=== PATIENT | female | born 1935 | race Caucasian/White ===

== ENCOUNTER 2016-09-30 19:14 | Inpatient (IN) | payer MEDICARE, MEDICAID ==
[~2016-09-30] VITALS: Ht 157.5 cm; Wt 54.0 kg
[2016-09-30 19:27] VITALS: BP 164/66; PULSE 69; RESP 18; O2SAT 97
[2016-09-30 19:41] VITALS: TEMP 98
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
[2016-09-30] MEDS ORDERED: ZYRT10CA PO (19:56)
[2016-09-30] MEDS ORDERED: LORA1TAB12 PO (19:56)
[2016-09-30] MEDS ORDERED: SERO25TA PO (19:56)
[2016-09-30] MEDS ORDERED: TRAZ50TA12 PO (19:56)
[2016-09-30] MEDS ORDERED: CITA20TA4 PO (19:56)
--- NOTE | 2016-09-30 20:17 | RADRPT ---
EXAM DATE/TIME: 09/30/2016 19:43 [facility] COMPARISON: No previous studies available for comparison. INDICATIONS : Altered mental status. RADIATION DOSE: 56.35 CTDIvol (mGy) MEDICAL HISTORY : Dementia. Ulcers. SURGICAL HISTORY : Appendectomy. Cholecystectomy. ENCOUNTER: Initial ACUITY: 1 day PAIN SCALE: 0/10 LOCATION: cranial TECHNIQUE: Multiple contiguous axial images were obtained of the head. Using automated exposure control and adj ustment of the mA and/or kV according to patient size, radiation dose was kept as low as reasonably a chievable to obtain optimal diagnostic quality images. FINDINGS: There is marked central and cortical atrophy with dilatation of ventricular and sulcal spaces. There is no parenchymal hemorrhage, acute infarction or mass lesion identified. There are no extra-a xial fluid collections appreciated. The posterior fossa is unremarkable with midline fourth ventricl e. The portion of the orbits and paranasal sinuses visualized are unremarkable. CONCLUSION: Atrophy with periventricular matter changes, negative for acute process. Soto Uribe MD FACR on September 30, 2016 at 20:15 Board Certified Radiologist. This report was verified electronically.
[2016-09-30 20:18] LABS: AUTOMATED NEUTROPHIL # 6.1 TH/MM3 (1.8-7.7); BASOPHIL # 0.1 TH/MM3 (0-0.2); BASOPHIL % 0.7 % (0.0-2.0); EOSINOPHIL # 0.3 TH/MM3 (0-0.4); EOSINOPHIL % 3.6 % (0.0-4.0); HEMATOCRIT 39.4 % (35.0-46.0); HEMO FLAGS DIFF FINAL; LYMPH % 21.1 % (9.0-44.0); MEAN CELL VOLUME 82.2 FL (80.0-100.0); MEAN CORPUSCULAR HEMOGLOBIN 28.6 PG (27.0-34.0); MEAN CORPUSCULAR HGB CONC 34.8 % (32.0-36.0); MONO % 10.2 % (0.0-8.0); NEUT % 64.4 % (16.0-70.0); PLATELET COUNT 315 TH/MM3 (150-450); RED BLOOD COUNT 4.79 MIL/MM3 (4.00-5.30); RED CELL DISTRIBUTION WIDTH 14.1 % (11.6-17.2); WHITE BLOOD COUNT 9.5 TH/MM3 (4.0-11.0)
[2016-09-30] MEDS ORDERED: DONE10TA7 PO (20:39)
[2016-09-30 20:48] LABS: ALKALINE PHOSPHATASE 118 U/L (45-117); ALT (GPT) 20 U/L (10-53); ANION GAP 7 MEQ/L (5-15); AST (GOT) 23 U/L (15-37); BICARBONATE 31.2 MEQ/L (21.0-32.0); BLOOD UREA NITROGEN 19 MG/DL (7-18); CHLORIDE 101 MEQ/L (98-107); GLOMERULAR FILTRATION RATE 62 ML/MIN (>89); SODIUM (NA) 139 MEQ/L (136-145); TOTAL BILIRUBIN ADULT 0.3 MG/DL (0.2-1.0)
[2016-09-30 20:49] LABS: BLOOD, URINE NEG (NEG); COMMENT (UR) CULT NOT INDICATED; CULTURE IF INDICATED CULT NOT INDICATED; GLUCOSE,URINE NEG (NEG); KETONE, URINE NEG (NEG); MUCUS URINE FEW /lpf (OCC); NITRITE,URINE NEG (NEG); PH, URINE 6.5 (5.0-8.5); SQUAMOUS EPITHELIAL CELL URINE <1 /hpf (0-5); URINE COLOR YELLOW (YELLW/STRAW)
[2016-09-30 20:56] LABS: POTASSIUM 4.5 MEQ/L (3.5-5.1)
--- NOTE | 2016-09-30 21:08 | PD ---
Physical Exam Date Seen by Provider: Sep 30, 2016 Time Seen by Provider: 21:07 Narrative 81-year-old female came to the emergency room as a Dobbs act. She has history of psych disorder. She was seen by the nurse practitioner for medical clearance. I am supervising her. She has left for the night. Blood test and CAT scan of the head was pending. They came back and are within normal limit. I'll medically cleared her. Awaiting for the psych screening. Data Data Last Documented VS Vital Signs Date Time Temp Pulse Resp B/P Pulse Ox O2 Delivery O2 Flow Rate FiO2 10/01/16 15:25 96.1 83 18 143/62 96 Room Air Orders Complete Blood Count With Diff (09/30/16 19:34) Comprehensive Metabolic Panel (09/30/16 19:34) Urinalysis - C+S If Indicated (09/30/16 19:34) Cath For Specimen (09/30/16 19:34) Psych Screen (09/30/16 19:34) Ct Brain W/O Iv Contrast(Rout) (09/30/16 ) Diet Regular Basic (10/01/16 Breakfast) Diet Regular Basic (10/01/16 Lunch) Lorazepam Inj (Ativan Inj) (10/01/16 11:00) Haloperidol (Haldol) (10/01/16 16:15) Admit Order (Ed Use Only) (10/01/16 ) Admit To Inpatient Psych (10/01/16 ) Code Status (10/01/16 16:29) Vital Signs (Adult) PO.Q12H.E (10/01/16 16:29) Activity Oob Ad Soraida (10/01/16 16:29) Level Of Observation (Psych) (10/01/16 16:29) Aims-Abnormal Invol Move Scale ONCE (10/01/16 16:29) Acetaminophen (Tylenol) (10/01/16 16:30) Magnesium Hydroxide Liq (Milk Of Magnesi (10/01/16 16:30) Al-Mag Hy-Si 40-40-4 Mg/Ml Liq (Mag-Al P (10/01/16 16:30) Basic Metabolic Panel (Bmp) (10/02/16 06:00) Lipid Profile (10/02/16 06:00) Hemoglobin (Hgb) A1c (10/02/16 06:00) Labs Laboratory Tests Test 09/30/16 09/30/16 20:05 20:30 White Blood Count 9.5 TH/MM3 Red Blood Count 4.79 MIL/MM3 Hemoglobin 13.7 GM/DL Hematocrit 39.4 % Mean Corpuscular Volume 82.2 FL Mean Corpuscular Hemoglobin 28.6 PG Mean Corpuscular Hemoglobin 34.8 % Concent Red Cell Distribution Width 14.1 % Platelet Count 315 TH/MM3 Mean Platelet Volume 8.9 FL Neutrophils (%) (Auto) 64.4 % Lymphocytes (%) (Auto) 21.1 % Monocytes (%) (Auto) 10.2 % Eosinophils (%) (Auto) 3.6 % Basophils (%) (Auto) 0.7 % Neutrophils # (Auto) 6.1 TH/MM3 Lymphocytes # (Auto) 2.0 TH/MM3 Monocytes # (Auto) 1.0 TH/MM3 Eosinophils # (Auto) 0.3 TH/MM3 Basophils # (Auto) 0.1 TH/MM3 CBC Comment DIFF FINAL Differential Comment Sodium Level 139 MEQ/L Potassium Level 4.5 MEQ/L Chloride Level 101 MEQ/L Carbon Dioxide Level 31.2 MEQ/L Anion Gap 7 MEQ/L Blood Urea Nitrogen 19 MG/DL Creatinine 0.88 MG/DL Estimat Glomerular Filtration 62 ML/MIN Rate Random Glucose 91 MG/DL Calcium Level 9.4 MG/DL Total Bilirubin 0.3 MG/DL Aspartate Amino Transf 23 U/L (AST/SGOT) Alanine Aminotransferase 20 U/L (ALT/SGPT) Alkaline Phosphatase 118 U/L Total Protein 7.0 GM/DL Albumin 3.5 GM/DL Urine Color YELLOW Urine Turbidity CLEAR Urine pH 6.5 Urine Specific [place] 1.020 Urine Protein NEG mg/dL Urine Glucose (UA) NEG mg/dL Urine Ketones NEG mg/dL Urine Occult Blood NEG Urine Nitrite NEG Urine Bilirubin NEG Urine Urobilinogen LESS THAN 2.0 MG/DL Urine Leukocyte Esterase NEG Urine RBC 2 /hpf Urine WBC 1 /hpf Urine Squamous Epithelial <1 /hpf Cells Urine Mucus FEW /lpf Microscopic Urinalysis Comment CULT NOT INDICATED MDM Supervised Visit with RACHEL: Jesús Denise MD Sep 30, 2016 21:08
[2016-10-01 00:16] VITALS: BP 128/61; PULSE 70; RESP 16; O2SAT 96
[2016-10-01 02:00] VITALS: RESP 18
[2016-10-01 06:00] VITALS: BP 124/61; PULSE 80; RESP 18; O2SAT 100
[2016-10-01 10:00] VITALS: BP 135/76; PULSE 78; RESP 18; O2SAT 97
[2016-10-01] MEDS ORDERED: LORazepam 2 MG/ML VIAL IM ONE (11:00)
[2016-10-01 15:25] VITALS: BP 143/62; PULSE 83; RESP 18; TEMP 96.1; O2SAT 96
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
[2016-10-01] MEDS ORDERED: HALOPERIDOL 2 MG TAB PO ONE (16:15)
[2016-10-01] MEDS ORDERED: ALUMINUM/MAGNESIUM/SIMETH 30 ML CUP PO PRN (16:30)
[2016-10-01] MEDS ORDERED: MAGNESIUM HYDROXIDE SUSP 30 ML CUP PO PRN (16:30)
[2016-10-01] MEDS ORDERED: LORazepam 1 MG TAB PO PRN (23:00)
[2016-10-01] MEDS ORDERED: LORazepam 0.5 MG TAB PO PRN (23:00)
[2016-10-01] MEDS ORDERED: LORazepam 2 MG/ML VIAL IM PRN ×2 (23:00)
[2016-10-02 05:29] VITALS: BP 155/65; PULSE 80; RESP 20; TEMP 98.3
[2016-10-02] MEDS ORDERED: diphenhydrAMINE HCL 50 MG/ML VIAL IM PRN (09:00)
[2016-10-02] MEDS: CETIRIZINE HCL 10 MG TAB PO SCH (09:00)
[2016-10-02] MEDS: CITALOPRAM HYDROBROMIDE 20 MG TAB PO SCH (09:00)
[2016-10-02] MEDS: QUEtiapine FUMARATE 25 MG TAB PO SCH ×2 (09:00→21:31)
--- NOTE | 2016-10-02 09:08 | HHI.HP ---
Provisional Diagnosis Admission Date Oct 01, 2016 at 16:31 [place] I. 1. Dementia of the Alzheimer's type with behavioral disturbance [place] II. Deferred [place] V. GAF is 30 presently Certification of Person's Competence To Provide Express and Informed Consent I have personally examined Rosa Marin , a person being served at [facility] on, Oct 02, 2016 08:54. Express and informed consent means consent voluntarily given in writing, by a competent person, after sufficient explanation and disclosure of the subject matter involved to enable the person to make a knowing and willful decision without any element of force, fraud, deceit, duress, or other form of constraint or coercion. This person is 18 years of age or older, is not now known to be incompetent to consent to treatment with a guardian advocate, and does not have a health care surrogate or proxy currently making medical treatment decisions. I have found this person to be one of the following: [] Competent to provide express and informed consent, as defined above, for voluntary admission to this facility and is competent to provide express and informed consent for treatment. He/she has the consistent capacity to make well reasoned, willful, and knowing decisions concerning his or her medical or mental health treatment. The person fully and consistently understands the purpose of the admission for examination/placement and is fully capable of personally exercising all rights assured under [place] [x] Incompetent to provide express and informed consent to voluntary admission, and this is incompetent to provide express and informed consent to treatment. The person must be transferred to involuntary status and a petition for a guardian advocate filed with the Circuit Court. [] Refusing to provide express and informed consent to voluntary admission but is competent to provide express and informed consent for treatment. The person must be discharged or transferred to involuntary status. Form shall be completed within 24 hours of a person's arrival at the receiving facility and filed in the clinical record of each person: 1. Admitted on a voluntary basis 2. Permitted to provide express and informed consent to his/her own treatment 3. Allowed to transfer from involuntary to voluntary status 4. Prior to permitting a person to consent to his or her own treatment after having been previously found incompetent to consent to treatment. History of Present Illness Capacity: Lacks Capacity HPI Ms. Marin is an 81-year-old female with a history of dementia who presents in transfer from her [facility] under a Dobbs act from [place] [employer] alleging that the patient has been agitated acting out and striking and kicking other patients. Minimal documentation accompanies the patient from her facility, and I have reviewed this. Patient was seen by the psychiatric nurse practitioner recommended admission to the inpatient psychiatric unit. Reviewing the electronic medical record, I see no prior psychiatric contact within our system. Patient seen and examined. Chart reviewed. Case discussed with nursing staff on the inpatient psychiatric unit. On my examination today, patient presents as confused, see full mental status testing below. She denies any audiovisual hallucinations. I can elicit no delusional beliefs although she has little watchful. She denies any suicidal ideation but when I inquire about homicidal ideation she says "oh, I like to kill some people. They're a pain in the ass." She declines to say whom she would kill. No reported urge to hurt anyone on the inpatient psychiatric unit. Denies issues with low mood or elevated mood. She has no recollection of the circumstances of her presentation here. Psychiatric interview is limited because of patient's degree of cognitive impairment. Patient is unable to provide any meaningful past psychiatric or family history on account of her cognitive impairment. Chemical dependency history: Patient denies any abuse of drugs or alcohol. Social history: Patient reports that she is college educated and worked at [employer] in the past. She is unsure about her marital status and says that she has a "couple of kids." I endeavored first reach out to patient's daughter Dinorah at the number listed in the EMR, but this number was not in service. I subsequently called the patient's son, Brennen, who lives in [facility] and is listed as the first personal injury litigation paralegal on the documentation from patient's facility. He reports that the patient has no prior psychiatric history before her diagnosis with dementia. Years ago. She had previously been residing with Brennen's brother here in [place]. She did not previously have issues with agitation before she was placed in the facility, but Brennen has been getting periodic reports that she has been struggling with agitation since she has been there. Brennen is willing to act as healthcare surrogate for the patient. I reviewed patient's medication list from facility with son. I discuss treatment plan on inpatient unit including but not limited to holding benzodiazepines out of concern that these may be disinhibiting the patient and titrating Seroquel for control of agitation. I have discussed the risks and benefits of patient's medications with son in detail, highlighting the black box warning for increased risk of in the demented elderly with atypical antipsychotics. He is agreeable to the treatment plan as outlined below. I have discussed the risks and benefits of hospitalization, particularly extended hospitalization as may be required if the patient needs new placement, with patient's son including the risk for medical complications on the inpatient unit, and he agrees that inpatient hospitalization is the most reasonable course of action at this time. He is unsure about patient's wishes regarding CODE STATUS but will discuss the matter with the family and get back to me. Review of Systems ROS Limitations: Poor Historian Except as stated in HPI: all other systems reviewed are Neg Past Psych History Psychological trauma history Unable to obtain on account of cognitive impairment Violence risk - others (6 mos) Concern for elevated risk. Patient has allegedly been having issues with agitation and does endorse some violent ideation as noted above. Violence risk - self (6 mos) Indeterminate but suspect lower risk. Patient denies suicidal ideation. Substance Abuse History Drugs/Alcohol past 12 months Patient denies Past Family Social History Coded Allergies: Ultram (Verified Allergy, Severe, 09/30/16) Lipitor (Verified Allergy, Mild, 09/30/16) Past Medical History See electronic medical record. Patient's son does not believe that she has any chronic medical issues to speak of and her only medical medication from the facility list is some cetirizine. Reported Medications Donepezil 10 Mg Tab10 Mg PO HS #30 TAB Ref 0 09/30/16 Citalopram 20 Mg Tab20 Mg PO DAILY #30 TAB Ref 0 09/30/16 Cetirizine (Zyrtec Allergy)10 Mg Cap10 Mg PO DAILY Ref 0 09/30/16 Trazodone 50 Mg Tab50 Mg PO HS #30 TAB Ref 0 09/30/16 Lorazepam 1 Mg Tab1 Mg PO Q8H PRN (ANXIETY) Ref 0 09/30/16 Quetiapine (Seroquel)25 Mg Tab25 Mg PO DAILY #30 TAB Ref 0 09/30/16 Current Medications Medications (Trade) Dose Ordered Sig/Chris Route Start Time Stop Time Status Last Admin (Tylenol) 650 mg Q4H PRN PO 10/01/16 16:30 (Milk Of Magnesia Liq) 30 ml DAILY PRN PO 10/01/16 16:30 (Mag-Al Plus Susp Liq) 30 ml Q6H PRN PO 10/01/16 16:30 (Ativan) 0.5 mg Q1H PRN PO 10/01/16 23:00 (Ativan Inj) 0.5 mg Q1H PRN IM 10/01/16 23:00 (Ativan) 1 mg Q1H PRN PO 10/01/16 23:00 (Ativan Inj) 1 mg Q1H PRN IM 10/01/16 23:00 Family History See above Social History See above Patient's Strengths (min. 2) In a monitored setting. Supportive son. Physical Exam Physical examination completed by ED provider. On my examination today, patient appears to be fairly well-nourished and well-developed in no acute physical distress. No hand tremor, no dystonia, no dyskinesia, no other motoric abnormalities noted. Laboratories and vital signs reviewed: Vital Signs Vital Signs Date Time Temp Pulse Resp B/P Pulse Ox O2 Delivery O2 Flow Rate FiO2 10/02/16 05:29 98.3 80 20 155/65 10/01/16 15:25 96 Room Air Lab Results Item Value Date Time White Blood Count 9.5 TH/MM3 09/30/162004 Hemoglobin 13.7 GM/DL 09/30/162004 Platelet Count 315 TH/MM3 09/30/162004 Sodium Level 139 MEQ/L 09/30/162004 Potassium Level 4.5 MEQ/L 09/30/162004 Chloride Level 101 MEQ/L 09/30/162004 Blood Urea Nitrogen 19 MG/DL H 09/30/162004 Creatinine 0.88 MG/DL 09/30/162004 Random Glucose 91 MG/DL 09/30/162004 Aspartate Amino Transf (AST/SGOT) 23 U/L 09/30/162004 Alanine Aminotransferase (ALT/SGPT) 20 U/L 09/30/162004 Alkaline Phosphatase 118 U/L H 09/30/162004 Urinalysis is bland Last Impressions Head CT 09/30/16 0000 Signed Impressions: Service Date/Time: Friday, September 30, 2016 19:43 - CONCLUSION: Atrophy with periventricular matter changes, negative for acute process. Soto Uribe MD FACR Mental Status Examination Patient is in hospital [facility]. She is somewhat disheveled but maintaining basic hygiene. She is awake and alert and oriented to person only. Her registration is 3 out of 3 but her recall is 0 out of 3 at 3 minutes. She is unable to spell the word world forward or backward. She is able to name only one of 2 items. She is unable to repeat a phrase. She cannot tell me who the president is. Motor exam as above. Speech is within normal limits for rate, tone and volume. Language and fund of knowledge seem reduced for age. Mood is fair and affect is fairly full and reactive. Thought process generally linear with no loosening of associations. No shari delusional material. Denies audiovisual hallucinations. Denies suicidal ideation. Endorses violent ideation as noted above. Insight and judgment are presently poor. Assessment & Plan Problem List: (1) Alzheimer's dementia with behavioral disturbance ICD Code: G30.8 Assessment & Plan This is an 81-year-old female with psychiatric history as detailed above who presents under a Dobbs act. On my examination today, the patient presents with severe cognitive impairment. She does endorse some violent ideation. Collateral from son suggests that agitation has been a problem since the patient entered into the facility. I will admit the patient to the inpatient psychiatric unit for observation and stabilization. Admit inpatient. Involuntary status. I've completed first opinion. Consult for second opinion. Request healthcare surrogate and guardian advocate. Titrate Seroquel to 25 mg twice daily to manage agitation. Continue Celexa 20 mg daily. Continue Aricept 10 mg at bedtime. Hold benzodiazepines and instead use Haldol as needed for agitation. Benadryl as needed for EPS. Melatonin as needed for sleep. PT consult with falls precautions. Vitals every shift. Counselor to see. Disposition planning. Estimated length of stay: 7-10 days. Discharge Planning Pending psychiatric stabilization. Hopefully the patient will be able to return to her original placement. Request HC Surrog/Guard Advoc?: Yes Problem Qualifiers (1) Alzheimer's dementia with behavioral disturbance: Qualified Code: G30.8 - Alzheimer's disease of other onset with behavioral disturbance Kevin Quarles MD Oct 02, 2016 09:08
[2016-10-02 09:27] LABS: ANION GAP 7 MEQ/L (5-15); BICARBONATE 27.2 MEQ/L (21.0-32.0); BLOOD UREA NITROGEN 14 MG/DL (7-18); CHLORIDE 104 MEQ/L (98-107); GLOMERULAR FILTRATION RATE 78 ML/MIN (>89); HDL CHOLESTEROL 59.9 MG/DL (40.0-60.0); LDL CHOLESTEROL 133 MG/DL (0-99); SODIUM (NA) 138 MEQ/L (136-145)
--- NOTE | 2016-10-02 13:19 | PD.CONS ---
Provisional Diagnosis Admission Date Oct 01, 2016 at 16:31 [place] I. 1. 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 Deferred [place] V. GAF is 30 presently History of Present Illness Service Psychiatry Consult Requested By Attending MNichole. Reason for Consult Second opinion Dobbs act Primary Care Physician Jerzy Alonso MD HPI Ms. Marin is an 81-year-old female with a history of dementia who presents in transfer from her [facility] nursing facility under a Dobbs act from [place] [employer] alleging that the patient has been agitated acting out and striking and kicking other patients. Minimal documentation accompanies the patient from her facility, and I have reviewed this. Patient was seen by the psychiatric nurse practitioner recommended admission to the inpatient psychiatric unit. Reviewing the electronic medical record, I see no prior psychiatric contact within our system. Patient seen and examined. Chart reviewed. Case discussed with nursing staff on the inpatient psychiatric unit. On my examination today, patient presents as confused, see full mental status testing below. She denies any audiovisual hallucinations. I can elicit no delusional beliefs although she has little watchful. She denies any suicidal ideation but when I inquire about homicidal ideation she says "oh, I like to kill some people. They're a pain in the ass." She declines to say whom she would kill. No reported urge to hurt anyone on the inpatient psychiatric unit. Denies issues with low mood or elevated mood. She has no recollection of the circumstances of her presentation here. Psychiatric interview is limited because of patient's degree of cognitive impairment. Patient is unable to provide any meaningful past psychiatric or family history on account of her cognitive impairment. Chemical dependency history: Patient denies any abuse of drugs or alcohol. Social history: Patient reports that she is college educated and worked at [employer] in the past. She is unsure about her marital status and says that she has a "couple of kids." I endeavored first reach out to patient's daughter Dinorah at the number listed in the EMR, but this number was not in service. I subsequently called the patient's son, Brennen, who lives in [facility] and is listed as the first salesperson china and glassware on the documentation from patient's facility. He reports that the patient has no prior psychiatric history before her diagnosis with dementia. Years ago. She had previously been residing with Brennen's brother here in [place]. She did not previously have issues with agitation before she was placed in the facility, but Brennen has been getting periodic reports that she has been struggling with agitation since she has been there. Brennen is willing to act as healthcare surrogate for the patient. I reviewed patient's medication list from facility with son. I discuss treatment plan on inpatient unit including but not limited to holding benzodiazepines out of concern that these may be disinhibiting the patient and titrating Seroquel for control of agitation. I have discussed the risks and benefits of patient's medications with son in detail, highlighting the black box warning for increased risk of in the demented elderly with atypical antipsychotics. He is agreeable to the treatment plan as outlined below. I have discussed the risks and benefits of hospitalization, particularly extended hospitalization as may be required if the patient needs new placement, with patient's son including the risk for medical complications on the inpatient unit, and he agrees that inpatient hospitalization is the most reasonable course of action at this time. He is unsure about patient's wishes regarding CODE STATUS but will discuss the matter with the family and get back to me. 10/02/16 Above note dictated by Dr. quarles reviewed and agreed with. Patient is an 81 -year-old female admitted to Dr. quarles service under the Dobbs act. Dr. Quarles has signed first opinion petition supporting Dobbs act. Patient seen by me in dayroom with floor staff, patient alert diffusely disorganized to place time and situation somewhat irritable. I agree, patient does meet criteria for involuntary psychiatric hospitalization under the Dobbs act. Thus I'll cosign second opinion petition supporting Dobbs act Past Family Social History Coded Allergies: Ultram (Verified Allergy, Severe, 09/30/16) Lipitor (Verified Allergy, Mild, 09/30/16) Reported Medications Donepezil 10 Mg Tab10 Mg PO HS #30 TAB Ref 0 09/30/16 Citalopram 20 Mg Tab20 Mg PO DAILY #30 TAB Ref 0 09/30/16 Cetirizine (Zyrtec Allergy)10 Mg Cap10 Mg PO DAILY Ref 0 09/30/16 Trazodone 50 Mg Tab50 Mg PO HS #30 TAB Ref 0 09/30/16 Lorazepam 1 Mg Tab1 Mg PO Q8H PRN (ANXIETY) Ref 0 09/30/16 Quetiapine (Seroquel)25 Mg Tab25 Mg PO DAILY #30 TAB Ref 0 09/30/16 Current Medications Medications (Trade) Dose Ordered Sig/Chris Route Start Time Stop Time Status Last Admin (Tylenol) 650 mg Q4H PRN PO 10/01/16 16:30 (Milk Of Magnesia Liq) 30 ml DAILY PRN PO 10/01/16 16:30 (Mag-Al Plus Susp Liq) 30 ml Q6H PRN PO 10/01/16 16:30 (ZyrTEC) 10 mg DAILY PO 10/02/16 09:00 (CeleXA) 20 mg DAILY PO 10/02/16 09:00 (Aricept) 10 mg HS PO 10/02/16 21:00 (SEROquel) 25 mg BID PO 10/02/16 09:00 (Haldol Inj) 2 mg Q8H PRN IM 10/02/16 09:00 (Melatonin) 5 mg HS PRN PO 10/02/16 09:00 (Benadryl Inj) 25 mg Q6H PRN IM 10/02/16 09:00 (Benadryl) 25 mg Q6H PRN PO 10/02/16 09:00 Patient's Strengths (min. 2) In a monitored setting. Supportive son. Physical Exam Vital Signs Vital Signs Date Time Temp Pulse Resp B/P Pulse Ox O2 Delivery O2 Flow Rate FiO2 10/02/16 05:29 98.3 80 20 155/65 10/01/16 15:25 96 Room Air Mental Status Examination Alert diffusely confused white female Speech: Hesitant, Other (markedly confused) Orientation: Person (vaguely) Memory: Impaired (describe) Thought Process: Loose Association Thought Content: Other (markedly confused) Language [employer] Poor Hallucination Type: None (none noted) Attention and Concentration: Other (poor) Suicidal Ideation: No (denies) Previous Suicide Attempts: No Homicidal Ideation: No Previous Homicide Attempts: No Insight: Poor Judgment: Poor Affect: Other (slight increase range intensity) Mood: Irritable Motor Activity: Normal gait Assessment & Plan Problem List: (1) Alzheimer's dementia with behavioral disturbance ICD Code: G30.8 Assessment & Plan Estimated LOS: days Request HC Surrog/Guard Advoc?: Yes Problem Qualifiers (1) Alzheimer's dementia with behavioral disturbance: Qualified Code: G30.8 - Alzheimer's disease of other onset with behavioral disturbance Alexander Arreola MD Oct 02, 2016 13:19
[2016-10-02] MEDS: HALOPERIDOL LACTATE 5 MG/ML AMP IM PRN (14:06)
[2016-10-02 16:45] LABS: HEMOGLOBIN A1a 1.1 %; HEMOGLOBIN A1b 1.7 %; HEMOGLOBIN Ao 85.3 %; HEMOGLOBIN LA1C 1.9 %; HEMOGLOBIN P3 3.8 %
[2016-10-02 18:00] VITALS: BP 171/71; PULSE 86; RESP 16; TEMP 98.1; O2SAT 97
[2016-10-02] MEDS ORDERED: QUEtiapine FUMARATE 25 MG TAB PO SCH (21:00)
[2016-10-02] MEDS: DONEPEZIL HCL 5 MG TAB PO SCH (21:31)
[2016-10-03] MEDS: CETIRIZINE HCL 10 MG TAB PO SCH (09:15)
[2016-10-03] MEDS: CITALOPRAM HYDROBROMIDE 20 MG TAB PO SCH (09:15)
[2016-10-03] MEDS: QUEtiapine FUMARATE 25 MG TAB PO SCH ×3 (09:15→21:48)
--- NOTE | 2016-10-03 10:29 | HHI.PYPN ---
Subjective Remarks Patient seen and examined. Chart reviewed. Patient required Haldol PRN yesterday afternoon secondary to agitation/aggression. Case discussed with nursing staff reports that the patient remained somewhat suspicious and is isolating in her room but has had no further aggressive behavior. On my examination today, patient presents with a somewhat downcast mien, although she reports no depression. She denies any SI/HI/AVH. Denies any side effects from medications. Review of Systems ROS Limitations: Poor Historian Except as stated in HPI: all other systems reviewed are Neg (limited secondary to cognitive impairment) Objective Alert: Yes [place]: Person Mood: Calm (presently calm) Affect: Restricted (dysphoric) Memory Intact: Comment (Remains impaired) Hallucinations: Other (No AVH) Delusions: No Delusion Type: Other (No delusions) Suicidal: Ideation (Denies SI) Homicidal: Ideation (Denies HI) Insight/Judgment Poor Remarks No motor abnormalities noted. Grooming and hygiene fair although I do note that the patient is requiring 1-2 person assist with some hygiene tasks such as wei care. Labs Labs reviewed. Vitals/IOs Vital Signs Date Time Temp Pulse Resp B/P Pulse Ox O2 Delivery O2 Flow Rate FiO2 10/02/16 18:00 98.1 86 16 171/71 97 10/01/16 15:25 Room Air Intake and Output 10/02/16 10/02/16 10/03/16 08:00 16:00 00:00 Intake Total 120 ml 240 ml 240 ml Balance 120 ml 240 ml 240 ml Assessment & Plan Problem List: (1) Alzheimer's dementia with behavioral disturbance ICD Code: G30.8 Assessment & Plan Titrate Seroquel to 25 mg 3 times daily in light of agitation yesterday. Continue other psychotropics as ordered. Trend blood pressures. Patient may require a scheduled antihypertensive. In the meanwhile I will add clonidine as needed for marked hypertension. Continue other medications and care as ordered. Justification for Cont. Inpt. Impairment in safety. Some degree of impairment in self-care. Impairment in reality construction as a consequence of her dementia. Impairment in social functioning with aggression. Medication changes in process. Risk for decompensation in a less restrictive environment. Discharge Planning Unclear at present if patient is welcome back at her existing facility. I have left a message for the counselor to check on this. Request HC Surrog/Guard Advoc?: Yes Problem Qualifiers (1) Alzheimer's dementia with behavioral disturbance: Qualified Code: G30.8 - Alzheimer's disease of other onset with behavioral disturbance Kevin Quarles MD Oct 03, 2016 10:29
[2016-10-03] MEDS ORDERED: cloNIDine HCL 0.1 MG TAB PO PRN (12:00)
[2016-10-03 19:22] VITALS: BP 140/65; PULSE 88; RESP 17; TEMP 98.4
[2016-10-03] MEDS: DONEPEZIL HCL 5 MG TAB PO SCH (21:47)
[2016-10-03] MEDS: diphenhydrAMINE HCL 25 MG CAP PO PRN (21:48)
[2016-10-04 06:15] VITALS: BP 147/67; PULSE 73; RESP 16; TEMP 97.8; O2SAT 96
[2016-10-04] MEDS: QUEtiapine FUMARATE 25 MG TAB PO SCH ×3 (09:54→21:00)
[2016-10-04] MEDS: CITALOPRAM HYDROBROMIDE 20 MG TAB PO SCH (09:54)
[2016-10-04] MEDS: CETIRIZINE HCL 10 MG TAB PO SCH (09:54)
--- NOTE | 2016-10-04 13:46 | HHI.PYPN ---
Subjective Remarks Patient seen and examined. Chart reviewed. Case discussed with nursing staff. On my examination today, patient is calm and cooperative with examination. She is confused and oriented to person only. Affect is a little bit anxious but not terribly so. She reports that she is sleeping and eating well, although charting indicates that her oral intake is somewhat spotty. No evident side effects from medications. Review of Systems ROS Limitations: Poor Historian Except as stated in HPI: all other systems reviewed are Neg (limited ROS because of cognitive impairment) Objective Alert: Yes [place]: Person Mood: Calm Affect: Other (somewhat anxious) Memory Intact: Comment (impaired) Hallucinations: Other (No AVH) Delusions: No Delusion Type: Other (no delusional material) Suicidal: Ideation (no SI) Homicidal: Ideation (no HI) Insight/Judgment Poor Remarks No motor abnormalities noted. Thought process disorganized consistent with dementia diagnosis. Speech somewhat rambling. Labs Labs reviewed. Vitals/IOs Vital Signs Date Time Temp Pulse Resp B/P Pulse Ox O2 Delivery O2 Flow Rate FiO2 10/04/16 06:15 97.8 73 16 147/67 96 10/01/16 15:25 Room Air Intake and Output 10/03/16 10/03/16 10/04/16 08:00 16:00 00:00 Intake Total 0 ml Balance 0 ml Assessment & Plan Problem List: (1) Alzheimer's dementia with behavioral disturbance ICD Code: G30.8 Assessment & Plan Replace Celexa with Remeron in hopes of promoting appetite. Continue Seroquel as ordered. Continue Aricept as ordered. Dietitian consult. Continue to monitor on the inpatient unit. Continue other medications and care as ordered. Justification for Cont. Inpt. Impairment reality construction as a consequence of her dementia. Medication changes and process. Complicating conditions, namely poor oral intake. High risk for decompensation in a less restrictive environment. Discharge Planning Placement Request HC Surrog/Guard Advoc?: Yes Problem Qualifiers (1) Alzheimer's dementia with behavioral disturbance: Qualified Code: G30.8 - Alzheimer's disease of other onset with behavioral disturbance Kevin Quarles MD Oct 04, 2016 13:46
[2016-10-04 18:00] VITALS: BP 133/62; PULSE 86; RESP 16; TEMP 96.4; O2SAT 96
[2016-10-04] MEDS: DONEPEZIL HCL 5 MG TAB PO SCH (21:00)
[2016-10-04] MEDS: MIRTAZAPINE 15 MG TAB PO SCH (21:00)
[2016-10-05] MEDS: CETIRIZINE HCL 10 MG TAB PO SCH (09:23)
[2016-10-05] MEDS: QUEtiapine FUMARATE 25 MG TAB PO SCH ×3 (09:23→21:36)
--- NOTE | 2016-10-05 18:48 | HHI.PYPN ---
Subjective Remarks Pt seen and discussed with staff. She was irritable and uncooperative with care this morning but later complied. She has been isolative to her room for most of the day. No SI/HI Objective Alert: Yes [place]: Person Mood: Calm Affect: Restricted Memory Intact: Comment (impaired) Hallucinations: Other (No AVH) Delusions: No Delusion Type: Other (no delusional material) Suicidal: Ideation (no SI) Homicidal: Ideation (no HI) Insight/Judgment poor Vitals/IOs Vital Signs Date Time Temp Pulse Resp B/P Pulse Ox O2 Delivery O2 Flow Rate FiO2 10/04/16 18:00 96.4 86 16 133/62 96 10/01/16 15:25 Room Air Intake and Output 10/04/16 10/04/16 10/05/16 08:00 16:00 00:00 Intake Total 0 ml 960 ml 720 ml Balance 0 ml 960 ml 720 ml Assessment & Plan Problem List: (1) Alzheimer's dementia with behavioral disturbance ICD Code: G30.8 Assessment & Plan Continue current tx plan. Estimated LOS: days Justification for Cont. Inpt. risk of decompensation Request HC Surrog/Guard Advoc?: Yes Problem Qualifiers (1) Alzheimer's dementia with behavioral disturbance: Qualified Code: G30.8 - Alzheimer's disease of other onset with behavioral disturbance Carey Harris MD Oct 05, 2016 18:48
[2016-10-05 20:00] VITALS: BP 154/66; PULSE 80; TEMP 96.9; O2SAT 94
[2016-10-05] MEDS: MIRTAZAPINE 15 MG TAB PO SCH (21:36)
[2016-10-05] MEDS: DONEPEZIL HCL 5 MG TAB PO SCH (21:36)
[2016-10-06 05:30] VITALS: BP 112/49; PULSE 61; RESP 16; TEMP 96.9
[2016-10-06 10:00] VITALS: BP 150/68; PULSE 68
[2016-10-06] MEDS: QUEtiapine FUMARATE 25 MG TAB PO SCH ×3 (10:06→20:59)
[2016-10-06] MEDS: CETIRIZINE HCL 10 MG TAB PO SCH (10:06)
[2016-10-06 18:00] VITALS: BP 130/60; PULSE 70; RESP 16; TEMP 97.3; O2SAT 97
--- NOTE | 2016-10-06 20:15 | HHI.PYPN ---
Subjective Remarks Pt seen and discussed with staff. She has been confused but more compliant with care today. No medication side effects. No aggression/agitation. Objective Alert: Yes [place]: Person Mood: Calm Affect: Restricted Memory Intact: Comment (impaired) Hallucinations: Other (No AVH) Delusions: No Delusion Type: Other (no delusional material) Suicidal: Ideation (no SI) Homicidal: Ideation (no HI) Insight/Judgment poor Vitals/IOs Vital Signs Date Time Temp Pulse Resp B/P Pulse Ox O2 Delivery O2 Flow Rate FiO2 10/06/16 18:00 97.3 70 16 130/60 97 Intake and Output 10/05/16 10/05/16 10/06/16 08:00 16:00 00:00 Intake Total 240 ml Balance 240 ml Assessment & Plan Problem List: (1) Alzheimer's dementia with behavioral disturbance ICD Code: G30.8 Assessment & Plan Continue current tx plan. Estimated LOS: days Justification for Cont. Inpt. risks of decompensation Request HC Surrog/Guard Advoc?: Yes Problem Qualifiers (1) Alzheimer's dementia with behavioral disturbance: Qualified Code: G30.8 - Alzheimer's disease of other onset with behavioral disturbance Carey Harris MD Oct 06, 2016 20:15
[2016-10-06] MEDS: DONEPEZIL HCL 5 MG TAB PO SCH (20:58)
[2016-10-06] MEDS: MIRTAZAPINE 15 MG TAB PO SCH (20:59)
[2016-10-07 05:30] VITALS: BP 156/67; PULSE 60; RESP 18; TEMP 97.3
[2016-10-07] MEDS: QUEtiapine FUMARATE 25 MG TAB PO SCH ×3 (09:26→20:57)
[2016-10-07] MEDS: CETIRIZINE HCL 10 MG TAB PO SCH (09:26)
--- NOTE | 2016-10-07 10:03 | HHI.PYPN ---
Subjective Remarks Patient seen and examined. Chart reviewed. Dietitian input noted and appreciated. Oral intake remains somewhat inconsistent. Case discussed with nursing staff who reports patient is confused with medication compliant. On my examination today, patient presents her confused baseline. She says, "you look familiar" and asks if we have met before. Complains of mild anxiety but otherwise offers no complaints. No SI/HI. No side effects from meds. Review of Systems ROS Limitations: Poor Historian Except as stated in HPI: all other systems reviewed are Neg (cognitive impairment limits ROS) Objective Alert: Yes [place]: Person Mood: Anxious (mild), Calm Affect: Blunted Memory Intact: Comment (remains impaired) Hallucinations: Other (No AVH) Delusions: No Delusion Type: Other (no delusions) Suicidal: Ideation (no SI) Homicidal: Ideation (no HI) Insight/Judgment Poor Remarks No abnormal motor movements noted. Speech within normal limits for rate. Grooming and hygiene fair. Labs Labs reviewed. Vitals/IOs Vital Signs Date Time Temp Pulse Resp B/P Pulse Ox O2 Delivery O2 Flow Rate FiO2 10/07/16 05:30 97.3 60 18 156/67 10/06/16 18:00 97 Intake and Output 10/06/16 10/06/16 10/07/16 08:00 16:00 00:00 Intake Total 720 ml 240 ml Balance 720 ml 240 ml Assessment & Plan Problem List: (1) Alzheimer's dementia with behavioral disturbance ICD Code: G30.8 Assessment & Plan Titrate Remeron to target reported anxiety. Continue other psychotropics as ordered. Continue to monitor on the inpatient unit. Continue other medications and care as ordered. Justification for Cont. Inpt. Medication changes in process. High risk for decompensation in a less restrictive environment. Discharge Planning Counselor has tried to reach out to patient's referring facility to ensure that the patient may return there but has not yet heard back. If they are refusing to accept the patient back for some reason, new placement will be required. Request HC Surrog/Guard Advoc?: Yes Problem Qualifiers (1) Alzheimer's dementia with behavioral disturbance: Qualified Code: G30.8 - Alzheimer's disease of other onset with behavioral disturbance Kevin Quarles MD Oct 07, 2016 10:03
[2016-10-07] MEDS: diphenhydrAMINE HCL 25 MG CAP PO PRN (15:52)
[2016-10-07] MEDS: ACETAMINOPHEN 325 MG TAB PO PRN (15:52)
[2016-10-07 18:00] VITALS: BP 125/60; PULSE 78; RESP 18; TEMP 97.4; O2SAT 95
[2016-10-07] MEDS: MIRTAZAPINE 15 MG TAB PO SCH (20:57)
[2016-10-07] MEDS: DONEPEZIL HCL 5 MG TAB PO SCH (20:57)
[2016-10-08 05:40] VITALS: BP 99/56; PULSE 60; RESP 18; TEMP 97.5; O2SAT 95
[2016-10-08] MEDS: QUEtiapine FUMARATE 25 MG TAB PO SCH ×2 (09:05→12:43)
[2016-10-08] MEDS: CETIRIZINE HCL 10 MG TAB PO SCH (09:05)
[2016-10-08] MEDS: ACETAMINOPHEN 325 MG TAB PO PRN ×2 (09:10→16:07)
--- NOTE | 2016-10-08 13:35 | HHI.PYPN ---
Subjective Remarks Patient seen and examined. Chart reviewed. Case discussed with nurse, counselor and occupational therapist in treatment team. Per RN, patient has been medication compliant. Per occupational therapist, patient struggles to participate in groups because of her cognitive impairment. On my examination today, patient presents as irritable. She seems to believe that she is in a hotel. 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 She is particularly upset about having a roommate, whom she says they moved in today. In fact, the patient has had the same roommate for the last several days. When I try to point that out to her she says "that's a lot of bullshit!" No evident side effects from medications. Review of Systems ROS Limitations: Poor Historian Except as stated in HPI: all other systems reviewed are Neg Objective Alert: Yes [place]: Person Mood: Agitated, Angry Affect: Restricted Memory Intact: Comment (impaired) Hallucinations: Other (No AVH) Delusions: Yes Delusion Type: Paranoid Suicidal: Ideation (no SI) Homicidal: Ideation (no HI) Insight/Judgment Poor Remarks No abnormal motor movements noted. Steady gait and station. TP scattered consistent with cognitive impairment. Labs Laboratories reviewed. Vitals/IOs Vital Signs Date Time Temp Pulse Resp B/P Pulse Ox O2 Delivery O2 Flow Rate FiO2 10/08/16 05:40 97.5 60 18 99/56 95 Intake and Output 10/07/16 10/07/16 10/08/16 08:00 16:00 00:00 Intake Total 0 ml 480 ml 720 ml Balance 0 ml 480 ml 720 ml Vital signs reviewed. I have asked the nursing staff to check orthostatics, and the patient was somewhat orthostatic by systolic blood pressure. Assessment & Plan Problem List: (1) Alzheimer's dementia with behavioral disturbance ICD Code: G30.8 Assessment & Plan Patient with interval worsening and irritability and agitation. Given orthostasis, I will replace Seroquel with Haldol 0.5 mg twice daily with plans to titrate to target irritability and agitation in the setting of dementia as the Haldol has less propensity to cause orthostatic hypotension. Falls precautions are in place. Continue Remeron and Aricept as ordered. Continue to monitor on the inpatient psychiatric unit. Continue other medications include as ordered. Justification for Cont. Inpt. Complicating conditions, namely orthostatic hypotension. Medication changes in process. Impairment in reality construction. High risk for decompensation in a less restrictive environment. Discharge Planning Placement once psychiatrically stabilized. Request HC Surrog/Guard Advoc?: Yes Problem Qualifiers (1) Alzheimer's dementia with behavioral disturbance: Qualified Code: G30.8 - Alzheimer's disease of other onset with behavioral disturbance Kevin Quarles MD Oct 08, 2016 13:35
[2016-10-08 15:45] VITALS: BP_SYST 118; BP_SYST 137; BP_SYST 141; BP_DIAS 58; BP_DIAS 61; BP_DIAS 79; PULSE 79; RESP 16; TEMP 98.2; O2SAT 97
[2016-10-08] MEDS: diphenhydrAMINE HCL 25 MG CAP PO PRN (16:08)
[2016-10-08 18:03] VITALS: BP 118/58; PULSE 94; RESP 18; TEMP 96.9; O2SAT 97
[2016-10-08] MEDS: MIRTAZAPINE 15 MG TAB PO SCH (20:43)
[2016-10-08] MEDS: DONEPEZIL HCL 5 MG TAB PO SCH (20:43)
[2016-10-08] MEDS: HALOPERIDOL 0.5 MG TAB PO SCH (20:43)
[2016-10-09 05:14] VITALS: BP 123/68; PULSE 58; RESP 18; TEMP 96.3; O2SAT 97
[2016-10-09] MEDS: CETIRIZINE HCL 10 MG TAB PO SCH (08:37)
[2016-10-09] MEDS: HALOPERIDOL 0.5 MG TAB PO SCH ×4 (08:37→20:35)
--- NOTE | 2016-10-09 08:54 | HHI.PYPN ---
Subjective Remarks Patient seen and examined. Chart reviewed. Case discussed with nursing staff reports patient has been confused. On my examination today, the patient presents as somewhat irritable. She says "I have no place to go. I don't know where to go or what to do." She appears to be at her confused baseline. No evident side effects from medications. She does complain of some right knee pain but otherwise has no physical complaints. After departing the unit, I was called by the nursing staff to inform me that the patient had grown agitated and required medication with Haldol PRN as ordered. Patient reportedly remained agitated over an hour after receiving this dose of Haldol. I have ordered her medicated with an additional 2 mg of Haldol IM once. When I returned on the unit sometime later, the patient has calmed. Review of Systems ROS Limitations: Poor Historian Except as stated in HPI: all other systems reviewed are Neg Objective Alert: Yes [place]: Person Mood: Anxious Affect: Restricted (somewhat irritable) Memory Intact: Comment (remains quite impaired) Hallucinations: Other (No AVH) Delusions: No Delusion Type: Other (no delusions elicited today) Suicidal: Ideation (no SI) Homicidal: Ideation (no HI) Insight/Judgment Poor Remarks No motor abnormalities noted. Patient does not appear to be in any acute physical distress. Speech somewhat rambling. Grooming and hygiene fair. Labs Labs reviewed. Vitals/IOs Vital Signs Date Time Temp Pulse Resp B/P Pulse Ox O2 Delivery O2 Flow Rate FiO2 10/09/16 05:14 96.3 58 18 123/68 97 Intake and Output 10/08/16 10/08/16 10/09/16 08:00 16:00 00:00 Intake Total 480 ml 840 ml Balance 480 ml 840 ml Assessment & Plan Problem List: (1) Alzheimer's dementia with behavioral disturbance ICD Code: G30.8 Assessment & Plan Titrate Haldol to 0.5 mg 3 times daily. Plan to continue titrating to target behavioral outbursts. Continue other psychotropics as ordered. I will check an x-ray of the right knee to ensure there is no fracture. If the patient continues to complain of knee pain, we could consider a hospitalist consult. Continue to monitor on the inpatient unit. Continue other medications and care as ordered. Justification for Cont. Inpt. Impairment in reality construction. Impairment in social functioning. Medication changes in process. High risk for decompensation in a less restrictive environment. Discharge Planning Placement Request HC Surrog/Guard Advoc?: Yes Problem Qualifiers (1) Alzheimer's dementia with behavioral disturbance: Qualified Code: G30.8 - Alzheimer's disease of other onset with behavioral disturbance Kevin Quarles MD Oct 09, 2016 08:53
[2016-10-09] MEDS: HALOPERIDOL LACTATE 5 MG/ML AMP IM PRN (09:05)
[2016-10-09] MEDS: diphenhydrAMINE HCL 25 MG CAP PO PRN (10:15)
[2016-10-09] MEDS ORDERED: HALOPERIDOL LACTATE 5 MG/ML AMP IM ONE (11:00)
[2016-10-09] MEDS: ACETAMINOPHEN 325 MG TAB PO PRN (13:06)
--- NOTE | 2016-10-09 14:17 | RADRPT ---
EXAM DATE/TIME: 10/09/2016 13:35 [facility] COMPARISON: No previous studies available for comparison. INDICATIONS : Right knee pain. MEDICAL HISTORY : Dementia. Ulcers SURGICAL HISTORY : Appendectomy. Cholecystectomy ENCOUNTER: Subsequent ACUITY: 1 week PAIN SCORE: Non-responsive. LOCATION: Right Knee. FINDINGS: There is moderate narrowing of the medial compartment and moderate osteophyte formation. The knee is rotated on the lateral view with partial superimposition of the patellae and distal femur. No supra patellar soft tissue thickening. There is questionable soft tissue thickening about the medial dista l thigh and knee. No definite fracture seen. No radiopaque foreign bodies. CONCLUSION: Moderate severity osteoarthritic medial compartment. No evidence of fracture or dislocation. Possib le medial soft tissue swelling. Ramiro Vázquez MD on October 09, 2016 at 14:14 Board Certified Radiologist. This report was verified electronically.
[2016-10-09 18:00] VITALS: BP 123/57; PULSE 58; RESP 16; TEMP 97.2; O2SAT 97
[2016-10-09] MEDS: MIRTAZAPINE 15 MG TAB PO SCH (20:35)
[2016-10-09] MEDS: DONEPEZIL HCL 5 MG TAB PO SCH (20:35)
[2016-10-10 05:48] VITALS: BP 148/65; PULSE 58; RESP 16; TEMP 96.7; O2SAT 95
[2016-10-10] MEDS: CETIRIZINE HCL 10 MG TAB PO SCH (08:12)
[2016-10-10] MEDS: HALOPERIDOL 0.5 MG TAB PO SCH ×3 (08:12→20:44)
--- NOTE | 2016-10-10 10:39 | HHI.PYPN ---
Subjective Remarks Patient seen and case discussed with nursing staff. Chart reviewed. Oral intake remains somewhat variable. Sleep was somewhat shorter last night although the patient had been sleeping well the 2 nights before that. Per nursing staff, patient was no behavioral problem overnight. For me today, patient is somewhat anxious but otherwise no real behavioral problem. She is at her confused baseline. No evident side effects from medications. Review of Systems ROS Limitations: Poor Historian Except as stated in HPI: all other systems reviewed are Neg Objective Alert: Yes [place]: Person Mood: Anxious Affect: Blunted Memory Intact: Comment (impaired) Hallucinations: Other (No AVH) Delusions: No Delusion Type: Other (none) Suicidal: Ideation (no SI) Homicidal: Ideation (no HI) Insight/Judgment Poor Remarks No abnormal motor movements noted. Labs Labs reviewed. Vitals/IOs Vital Signs Date Time Temp Pulse Resp B/P Pulse Ox O2 Delivery O2 Flow Rate FiO2 10/10/16 05:48 96.7 58 16 148/65 95 Intake and Output 10/09/16 10/09/16 10/10/16 08:00 16:00 00:00 Intake Total 240 ml 240 ml Balance 240 ml 240 ml Assessment & Plan Problem List: (1) Alzheimer's dementia with behavioral disturbance ICD Code: G30.8 Assessment & Plan Gently titrate patient's Haldol to target anxiety in the setting of her dementia. Continue Remeron and Aricept as ordered. Continue to monitor on the inpatient unit. Continue other medications and care as ordered. Patient's case was presented to the [place] and the patient was retained on the inpatient psychiatric unit by the insurance commissioner. Justification for Cont. Inpt. Impairment in reality construction as a consequence of her dementia. Medication changes in process. High risk for decompensation in a less restrictive environment. Discharge Planning Placement. Request HC Surrog/Guard Advoc?: Yes Problem Qualifiers (1) Alzheimer's dementia with behavioral disturbance: Qualified Code: G30.8 - Alzheimer's disease of other onset with behavioral disturbance Kevin Quarles MD Oct 10, 2016 10:39
[2016-10-10 19:23] VITALS: BP 145/66; PULSE 89; RESP 18; TEMP 97.1; O2SAT 99
[2016-10-10] MEDS: MIRTAZAPINE 15 MG TAB PO SCH (20:44)
[2016-10-10] MEDS: DONEPEZIL HCL 5 MG TAB PO SCH (20:44)
[2016-10-10] MEDS: MELATONIN 5 MG TAB PO PRN (20:47)
[2016-10-10] MEDS: diphenhydrAMINE HCL 25 MG CAP PO PRN (20:47)
[2016-10-11 06:25] VITALS: BP 127/58; PULSE 73; RESP 16; TEMP 97; O2SAT 96
--- NOTE | 2016-10-11 08:57 | HHI.PYPN ---
Subjective Remarks Patient seen in day room with nurse Judith, chart reviewed patient calm with me though diffusely confused. compliant medications. Review of Systems Except as stated in HPI: all other systems reviewed are Neg Objective Alert: Yes [place]: Person Mood: Anxious Affect: Blunted Memory Intact: Comment (impaired) Hallucinations: Other (No AVH) Delusions: No Delusion Type: Other (none) Suicidal: Ideation (no SI) Homicidal: Ideation (no HI) Insight/Judgment Poor Vitals/IOs Vital Signs Date Time Temp Pulse Resp B/P Pulse Ox O2 Delivery O2 Flow Rate FiO2 10/11/16 06:25 97.0 73 16 127/58 96 Intake and Output 10/10/16 10/10/16 10/11/16 08:00 16:00 00:00 Intake Total 120 ml 720 ml 240 ml Output Total 1 ml Balance 119 ml 720 ml 240 ml Assessment & Plan Problem List: (1) Alzheimer's dementia with behavioral disturbance ICD Code: G30.8 Assessment & Plan Estimated LOS: days patient continues confused and demented though no significant behavioral problems at this time Justification for Cont. Inpt. At this time patient will decompensate if placed in the lower level of care Discharge Planning To be determined Request HC Surrog/Guard Advoc?: Yes Problem Qualifiers (1) Alzheimer's dementia with behavioral disturbance: Qualified Code: G30.8 - Alzheimer's disease of other onset with behavioral disturbance Alexander Arreola MD Oct 11, 2016 08:57
[2016-10-11] MEDS: HALOPERIDOL 0.5 MG TAB PO SCH ×3 (09:55→20:44)
[2016-10-11] MEDS: CETIRIZINE HCL 10 MG TAB PO SCH (09:55)
[2016-10-11 18:40] VITALS: BP 155/73; PULSE 96; RESP 17; TEMP 97.3; O2SAT 95
[2016-10-11] MEDS: MELATONIN 5 MG TAB PO PRN (20:42)
[2016-10-11] MEDS: DONEPEZIL HCL 5 MG TAB PO SCH (20:43)
[2016-10-11] MEDS: MIRTAZAPINE 15 MG TAB PO SCH (20:43)
[2016-10-12 06:26] VITALS: BP 140/68; PULSE 94; RESP 16; TEMP 97.8; O2SAT 96
[2016-10-12] MEDS: HALOPERIDOL 0.5 MG TAB PO SCH ×2 (09:00→21:30)
[2016-10-12] MEDS: CETIRIZINE HCL 10 MG TAB PO SCH (09:03)
--- NOTE | 2016-10-12 12:28 | HHI.PYPN ---
Subjective Remarks Patient was seen and case discussed with nursing. Patient is alert and oriented 1. Remains grossly confused and disorganized. Behaving well on the unit Objective Alert: Yes [place]: Person Mood: Anxious Affect: Restricted Memory Intact: Comment (impaired) Hallucinations: Other (No AVH) Delusions: No Delusion Type: Other (none) Suicidal: Ideation (no SI) Homicidal: Ideation (no HI) Insight/Judgment Poor Vitals/IOs Vital Signs Date Time Temp Pulse Resp B/P Pulse Ox O2 Delivery O2 Flow Rate FiO2 10/12/16 06:26 97.8 94 16 140/68 96 Intake and Output 10/11/16 10/11/16 10/12/16 08:00 16:00 00:00 Intake Total 480 ml 240 ml Balance 480 ml 240 ml Assessment & Plan Problem List: (1) Alzheimer's dementia with behavioral disturbance ICD Code: G30.8 Assessment & Plan Continue current treatment plan Justification for Cont. Inpt. Patient will decompensate in a less restrictive setting Request HC Surrog/Guard Advoc?: Yes Problem Qualifiers (1) Alzheimer's dementia with behavioral disturbance: Qualified Code: G30.8 - Alzheimer's disease of other onset with behavioral disturbance Johnny Lyons DO Oct 12, 2016 12:28
[2016-10-12 16:55] VITALS: BP 139/59; PULSE 97; RESP 18; TEMP 97.5; O2SAT 96
[2016-10-12] MEDS: MIRTAZAPINE 15 MG TAB PO SCH (21:29)
[2016-10-12] MEDS: DONEPEZIL HCL 5 MG TAB PO SCH (21:30)
[2016-10-13 06:32] VITALS: BP 120/53; PULSE 64; RESP 16; TEMP 97.9; O2SAT 97
[2016-10-13] MEDS: HALOPERIDOL 0.5 MG TAB PO SCH ×5 (09:39→21:50)
[2016-10-13] MEDS: CETIRIZINE HCL 10 MG TAB PO SCH (09:39)
--- NOTE | 2016-10-13 12:17 | HHI.PYPN ---
Subjective Remarks Patient was seen and case discussed with nursing. Patient remains alert and oriented 1. Grossly confused. Largely seclusive to self. Medication compliant. No agitation or labile behavior Objective Alert: Yes [place]: Person Mood: Calm Affect: Flat Memory Intact: Comment (impaired) Hallucinations: Other (No AVH) Delusions: No Delusion Type: Other (none) Suicidal: Ideation (no SI) Homicidal: Ideation (no HI) Insight/Judgment Poor Vitals/IOs Vital Signs Date Time Temp Pulse Resp B/P Pulse Ox O2 Delivery O2 Flow Rate FiO2 10/13/16 06:32 97.9 64 16 120/53 97 Intake and Output 10/12/16 10/12/16 10/13/16 08:00 16:00 00:00 Intake Total 720 ml 720 ml 600 ml Balance 720 ml 720 ml 600 ml Assessment & Plan Problem List: (1) Alzheimer's dementia with behavioral disturbance ICD Code: G30.8 Assessment & Plan Continue current treatment plan Justification for Cont. Inpt. Patient will decompensate in the less restrictive setting Request HC Surrog/Guard Advoc?: Yes Problem Qualifiers (1) Alzheimer's dementia with behavioral disturbance: Qualified Code: G30.8 - Alzheimer's disease of other onset with behavioral disturbance Johnny Lyons DO Oct 13, 2016 12:17
[2016-10-13] MEDS: MIRTAZAPINE 15 MG TAB PO SCH ×2 (21:00→21:49)
[2016-10-13] MEDS: DONEPEZIL HCL 5 MG TAB PO SCH ×2 (21:00→21:49)
[2016-10-13 21:30] VITALS: BP 179/65; PULSE 91; RESP 18; TEMP 98.4; O2SAT 96
[2016-10-14] MEDS: HALOPERIDOL LACTATE 5 MG/ML AMP IM PRN (01:30)
[2016-10-14 06:07] VITALS: BP 131/61; PULSE 58; RESP 16; TEMP 98; O2SAT 96
[2016-10-14] MEDS: CETIRIZINE HCL 10 MG TAB PO SCH (09:04)
[2016-10-14] MEDS: HALOPERIDOL 0.5 MG TAB PO SCH ×3 (09:04→21:00)
--- NOTE | 2016-10-14 16:15 | HHI.PYPN ---
Subjective Remarks Patient seen and examined with nurse. Chart reviewed. Case discussed with nursing staff who reports patient has been no real behavioral problem. On my examination today, the patient is ambulating around the unit with her walker. She is alert and oriented to person only. She is somewhat anxious but not severely so. No reported side effects from medications. No physical complaints. Review of Systems ROS Limitations: Poor Historian Except as stated in HPI: all other systems reviewed are Neg Objective Alert: Yes [place]: Person Mood: Anxious (mild) Affect: Blunted Memory Intact: Comment (remains impaired) Hallucinations: Other (No AVH) Delusions: No Delusion Type: Other (no delusions) Suicidal: Ideation (no SI) Homicidal: Ideation (no HI) Insight/Judgment Poor Remarks No motor abnormalities noted Labs Labs reviewed. Vitals/IOs Vital Signs Date Time Temp Pulse Resp B/P Pulse Ox O2 Delivery O2 Flow Rate FiO2 10/14/16 06:07 98.0 58 16 131/61 96 Intake and Output 10/13/16 10/13/16 10/14/16 08:00 16:00 00:00 Intake Total 480 ml 960 ml 360 ml Balance 480 ml 960 ml 360 ml Assessment & Plan Problem List: (1) Alzheimer's dementia with behavioral disturbance ICD Code: G30.8 Assessment & Plan Continue current psychotropics as ordered. Continue to monitor on the geropsychiatric unit. Continue other medications and care as ordered. Justification for Cont. Inpt. Final discharge planning Discharge Planning Per counselor, patient will [facility]. Risk for decompensation persists until we can transition the patient to this appropriate level of care. Request HC Surrog/Guard Advoc?: Yes Problem Qualifiers (1) Alzheimer's dementia with behavioral disturbance: Qualified Code: G30.8 - Alzheimer's disease of other onset with behavioral disturbance Kevin Quarles MD Oct 14, 2016 16:15
[2016-10-14 20:00] VITALS: BP 128/60; PULSE 82; RESP 16; O2SAT 95
[2016-10-14] MEDS: MIRTAZAPINE 15 MG TAB PO SCH (21:00)
[2016-10-14] MEDS: DONEPEZIL HCL 5 MG TAB PO SCH (21:00)
[2016-10-15 06:04] VITALS: BP 136/59; PULSE 65; RESP 18; TEMP 98.2; O2SAT 99
[2016-10-15] MEDS: HALOPERIDOL 0.5 MG TAB PO SCH ×2 (09:13→13:14)
[2016-10-15] MEDS: CETIRIZINE HCL 10 MG TAB PO SCH (09:13)
--- NOTE | 2016-10-15 11:07 | HHI.PYPN ---
Subjective Remarks Patient seen and examined. Chart reviewed. Case discussed in treatment team with nurse, counselor and occupational therapist. Patient has been no real behavioral problem on the unit per nursing staff. On my examination today, the patient is mildly argumentative but not physically aggressive or assaultive. She is somewhat faultfinding and querulous. She remains confused. No SI or HI voiced. No side effects from medications. Review of Systems ROS Limitations: Poor Historian Except as stated in HPI: all other systems reviewed are Neg Objective Alert: Yes [place]: Person Mood: Anxious (mild) Affect: Restricted Memory Intact: Comment (impaired) Hallucinations: Other (No AVH) Delusions: No Delusion Type: Other (no delusions) Suicidal: Ideation (no SI) Homicidal: Ideation (no HI) Insight/Judgment Poor Remarks No motoric abnormalities noted. Labs Labs reviewed. Vitals/IOs Vital Signs Date Time Temp Pulse Resp B/P Pulse Ox O2 Delivery O2 Flow Rate FiO2 10/15/16 06:04 98.2 65 18 136/59 99 Intake and Output 10/14/16 10/14/16 10/15/16 08:00 16:00 00:00 Intake Total 0 ml 840 ml Balance 0 ml 840 ml Assessment & Plan Problem List: (1) Alzheimer's dementia with behavioral disturbance ICD Code: G30.8 Assessment & Plan Titrate Haldol to 1/0.5/1 mg to target anxiety/irritability in the setting of dementia. Continue to monitor on the inpatient unit. Continue other medications and care as ordered. Justification for Cont. Inpt. Medication changes in process. Discharge Planning Anticipate patient will be stable for discharge to assisted living facility tomorrow. Request HC Surrog/Guard Advoc?: Yes Problem Qualifiers (1) Alzheimer's dementia with behavioral disturbance: Qualified Code: G30.8 - Alzheimer's disease of other onset with behavioral disturbance Keivn Quarles MD Oct 15, 2016 11:07
[2016-10-15 18:00] VITALS: BP 118/68; PULSE 93; RESP 16; O2SAT 95
[2016-10-15] MEDS: DONEPEZIL HCL 5 MG TAB PO SCH (21:12)
[2016-10-15] MEDS: HALOPERIDOL 1 MG TAB PO SCH (21:12)
[2016-10-15] MEDS: MIRTAZAPINE 15 MG TAB PO SCH (21:12)
[2016-10-16 05:28] VITALS: BP 146/65; PULSE 52; RESP 16; TEMP 98.5; O2SAT 95
[2016-10-16] MEDS: CETIRIZINE HCL 10 MG TAB PO SCH (09:16)
[2016-10-16] MEDS: HALOPERIDOL 1 MG TAB PO SCH (09:16)
[2016-10-16] MEDS ORDERED: ZYRT10CA PO (09:42)
[2016-10-16] MEDS ORDERED: DONE10TA7 PO (09:42)
[2016-10-16] MEDS ORDERED: HALO0.5T PO (09:42)
[2016-10-16] MEDS ORDERED: MIRTA15 PO (09:42)
--- NOTE | 2016-10-16 09:43 | HHI.DS ---
Psychiatry Discharge Summary Inpatient Psychiatric care?: Yes Advance Directive: No Reason Not Provided: Due to Patient Condition Mental Health AdvanceDirective: No Health Care Proxy: No Admission Admission Date Oct 01, 2016 at 16:31 Admission Diagnosis: (1) Alzheimer's dementia with behavioral disturbance ICD Code: G30.8 Brief History Ms. Marin is an 81-year-old female with a history of dementia who presents in transfer from her [facility] facility under a Dobbs act from [employer] alleging that the patient has been agitated acting out and striking and kicking other patients. Minimal documentation accompanies the patient from her facility, and I have reviewed this. Patient was seen by the psychiatric nurse practitioner recommended admission to the inpatient psychiatric unit. Reviewing the electronic medical record, I see no prior psychiatric contact within our system. Patient seen and examined. Chart reviewed. Case discussed with nursing staff on the inpatient psychiatric unit. On my examination today, patient presents as confused, see full mental status testing below. She denies any audiovisual hallucinations. I can elicit no delusional beliefs although she has little watchful. She denies any suicidal ideation but when I inquire about homicidal ideation she says "oh, I like to kill some people. They're a pain in the ass." She declines to say whom she would kill. No reported urge to hurt anyone on the inpatient psychiatric unit. Denies issues with low mood or elevated mood. She has no recollection of the circumstances of her presentation here. Psychiatric interview is limited because of patient's degree of cognitive impairment. Patient is unable to provide any meaningful past psychiatric or family history on account of her cognitive impairment. Chemical dependency history: Patient denies any abuse of drugs or alcohol. Social history: Patient reports that she is college educated and worked at [employer] in the past. She is unsure about her marital status and says that she has a "couple of kids." I endeavored first reach out to patient's daughter Dinorah at the number listed in the EMR, but this number was not in service. I subsequently called the patient's son, Brennen, who lives in [facility] and is listed as the first personal investment adviser on the documentation from patient's facility. He reports that the patient has no prior psychiatric history before her diagnosis with dementia. Years ago. She had previously been residing with Brennen's brother here in [place]. She did not previously have issues with agitation before she was placed in the facility, but Brennen has been getting periodic reports that she has been struggling with agitation since she has been there. Brennen is willing to act as healthcare surrogate for the patient. I reviewed patient's medication list from facility with son. I discuss treatment plan on inpatient unit including but not limited to holding benzodiazepines out of concern that these may be disinhibiting the patient and titrating Seroquel for control of agitation. I have discussed the risks and benefits of patient's medications with son in detail, highlighting the black box warning for increased risk of in the demented elderly with atypical antipsychotics. He is agreeable to the treatment plan as outlined below. I have discussed the risks and benefits of hospitalization, particularly extended hospitalization as may be required if the patient needs new placement, with patient's son including the risk for medical complications on the inpatient unit, and he agrees that inpatient hospitalization is the most reasonable course of action at this time. He is unsure about patient's wishes regarding CODE STATUS but will discuss the matter with the family and get back to me. Tobacco Use In Past 30 Days: No Tobacco Past 30 Days Alcohol Use: Never Hospital Course Patient was admitted to a locked, inpatient psychiatric unit. Appropriate precautions were in place throughout patient's hospital stay. Patient was seen and examined daily on the unit by psychiatry and also visited by counselor. Medications were adjusted. Patient experienced orthostasis from Seroquel, which was replaced by Haldol. Patient tolerated the Haldol much better and tolerated other medications without significant side effects. Patient had improvement in her presenting psychiatric symptomatology during the course of her hospital stay. There was no evidence of any suicidality or homicidality on the inpatient unit. Patient's behavior improved with the benefit of psychopharmacologic treatment. Counselor has arranged for placement at [facility]. On the day of discharge: Patient seen and examined. Chart reviewed. Case discussed with nursing staff who reports patient has been in good behavioral control and endeavors to be helpful with peers. On my examination today, the patient remains at her confused baseline. She denies any suicidal or homicidal ideation. She denies any audiovisual hallucinations and I can elicit no delusional beliefs. Mood is stable. No evident side effects from medications. Weighing the acute, chronic, and protective factors and based on the available evidence, I county judge to a reasonable degree medical certainty that the patient is at low imminent risk of harm to self or others from a mental illness as defined under the Dobbs act and level of function is adequate for planned level of outpatient care. I do suspect there is a component of chronic risk related to the patient's dementia diagnosis, but this risk would not be ameliorated by a longer inpatient psychiatric hospital stay. Patient will be discharged to facility today was psychiatric follow-up as arranged by counselor. Patient is also to follow-up with primary care. Patient is to return to the psychiatric emergency room for any concerning psychiatric symptoms. Results Blood Pressure 146 / 65 Vital Signs Date Time Temp Pulse Resp B/P Pulse Ox O2 Delivery O2 Flow Rate FiO2 10/16/16 05:28 98.5 52 16 146/65 95 Item Value Date Time White Blood Count 9.5 TH/MM3 09/30/162004 Hemoglobin 13.7 GM/DL 09/30/162004 Platelet Count 315 TH/MM3 09/30/162004 Sodium Level 138 MEQ/L 10/02/16 0850 Potassium Level 4.0 MEQ/L 10/02/16 0850 Chloride Level 104 MEQ/L 10/02/16 0850 Carbon Dioxide Level 27.2 MEQ/L 10/02/16 0850 Blood Urea Nitrogen 14 MG/DL 10/02/16 0850 Creatinine 0.72 MG/DL 10/02/16 0850 Hemoglobin A1c 5.6 % 10/02/16 0850 Aspartate Amino Transf (AST/SGOT) 23 U/L 09/30/162004 Alanine Aminotransferase (ALT/SGPT) 20 U/L 09/30/162004 Alkaline Phosphatase 118 U/L H 09/30/162004 Summary of Procedures None done Imaging Last Impressions Knee X-Ray 10/09/16 0000 Signed Impressions: Service Date/Time: Sunday, October 09, 2016 13:35 - CONCLUSION: Moderate severity osteoarthritic medial compartment. No evidence of fracture or dislocation. Possible medial soft tissue swelling. Ramiro Vázquez MD Head CT 09/30/16 0000 Signed Impressions: Service Date/Time: Friday, September 30, 2016 19:43 - CONCLUSION: Atrophy with periventricular matter changes, negative for acute process. Soto Uribe MD FACR Pending results at discharge: No Medications # of Antipsychotic meds at D/C: 1 Approp Antipsych med options 1 - Minimum of three failed multiple trials of monotherapy. 2 - Documented plan to taper to monotherapy due to previous use of multiple meds OR cross-taper in progress at D/C. 3 - Documentation of augmentation of Clozapine. 4 - Justification other than those listed in allowable values 1-3, document here : Discharge Discharge Date: Oct 16, 2016 Discharge Diagnosis: (1) Dementia with behavioral disturbance Diagnosis: Principal (behavioral disturbance resolved) ICD Code: F03.91 GAF on discharge is 50. Mental Status Exam at Disch Patient is casually dressed. She is fairly well groomed and maintaining basic hygiene. She is awake and alert and oriented to person. No evidence of delirium. No motor abnormalities noted. No dystonias, no dyskinesias. Speech is within normal limits for rate, tone and volume. Language and fund of knowledge along with memory remain impaired as a consequence of dementia. Mood is fair and affect is blunted. Thought process somewhat scattered consistent with dementia diagnosis. No shari delusions. No audiovisual hallucinations. Denies suicidal or homicidal ideation, intent or plan. Insight and judgment are poor. Pt Condition on Discharge: Stable Discharge Disposition: [facility] Discharge Instructions Diet Instructions: As Tolerated, No Restrictions Activities you can perform: Weight Bearing as Gabbie Scheduled Appointment: as per counselor's notes New Medications: Haloperidol (Haloperidol) 0.5 Mg Tab 0.5 MG PO DIRECTED 1mg PO qAM, 0.5mg PO qNoon, 1mg PO qHS. Psychiatric diagnosis: F03.91 Mental Health Days 30 Ref 0 TAB Mirtazapine (Mirtazapine) 15 Mg Tab 30 MG PO HS Mental Health Days 30 Ref 0 TAB Continued Medications: Cetirizine (Zyrtec Allergy) 10 Mg Cap 10 MG PO DAILY Allergies Days 30 Ref 0 CAP (This prescription has been renewed) Donepezil (Donepezil) 10 Mg Tab 10 MG PO HS Dementia #30 Ref 0 TAB (This prescription has been renewed) Discontinued Medications: Citalopram (Citalopram) 20 Mg Tab 20 MG PO DAILY Control Depression #30 Ref 0 TAB Lorazepam (Lorazepam) 1 Mg Tab 1 MG PO Q8H PRN ANXIETY Ref 0 TAB Quetiapine (Seroquel) 25 Mg Tab 25 MG PO DAILY #30 Ref 0 TAB Trazodone (Trazodone) 50 Mg Tab 50 MG PO HS Control Depression #30 Ref 0 TAB Discharge Time <= 30 minutes Discharge/Advance Care Plan Health Problems: (1) Alzheimer's dementia with behavioral disturbance Goals to promote your health * To prevent worsening of your condition and complications * To maintain your health at the optimal level Directions to meet your goals Take your medications as prescribed Follow your dietary instruction Follow activity as directed Keep your appointments as scheduled Take your immunizations and boosters as scheduled If your symptoms worsen call your PCP, if no PCP go to Urgent Care Center or Emergency Room For 13/01 questions related to your inpatient stay or results of tests pending at discharge, please contact Dr. Kevin Quarles at Smoking is Dangerous to Your Health. Avoid second hand smoking Problem Qualifiers (1) Alzheimer's dementia with behavioral disturbance: Qualified Code: G30.8 - Alzheimer's disease of other onset with behavioral disturbance (2) Dementia with behavioral disturbance: Qualified Code: F03.91 - Dementia with behavioral disturbance, unspecified dementia type Kevin Quarles MD Oct 16, 2016 09:43
[2016-10-16] MEDS: HALOPERIDOL 0.5 MG TAB PO SCH (12:00)
== END 2016-10-16 18:40 | DRG 57 ==
LOC: NEPD 19:14 → NEDA 10-01 16:31 → H250 10-01 18:10
PROVIDERS: ADMIT Psychiatry & Neurology Psychiatry; ATTEND Psychiatry & Neurology Psychiatry
DX: G30.9 Alzheimer's disease, unspecified (principal); F02.81 Dementia in other diseases classified elsewhere, unspecified severity, with behavioral disturbance; F25.9 Schizoaffective disorder, unspecified; F41.9 Anxiety disorder, unspecified; Z79.899 Other long term (current) drug therapy
CPT/HCPCS: 70450; 73560; 80048; 80053; 80061; 81001; 83036; 85025; 96372; J1630; J2060; P9612